=== PATIENT | male | born 1940 | race Caucasian/White ===

== ENCOUNTER 2020-07-31 17:23 | Inpatient (IN) | payer MEDICARE, MEDICAID ==
[~2020-07-31] VITALS: Ht 167.6 cm; Wt 84.4 kg
[2020-07-31 18:54] LABS: BASOPHILS % 0.4 % (0.0-2.0); HEMATOCRIT. 29.9 % (42.0-52.0); HEMOGLOBIN. 9.7 g/dL (14.0-18.0); LYMPHOCYTES % 8.8 % (20.0-50.0); MEAN CORPUSCULAR HEMOGLOBIN 28.6 pg (28.0-32.0); MEAN CORPUSCULAR VOLUME 88.2 fL (80.0-94.0); MEAN PLATELET VOLUME 7.8 fl (7.4-10.4); MONOCYTES % 9.5 % (2.0-8.0); NEUTROPHILS % 78.3 % (40.0-76.0); PLATELET 300 x1000/uL (130-400); RED BLOOD CELL COUNT 3.39 mill/uL (4.7-6.1); RED CELL DISTRIBUTION WIDTH 18.3 % (11.6-14.6)
[2020-07-31 19:00] LABS: CHLORIDE 96 mEq/L (98-107)
[2020-07-31] MEDS ORDERED: PIPERACILLIN/TAZ 3.375G PREMIX 50 ML IV ONE (19:30)
[2020-07-31] MEDS ORDERED: INSULIN LISPRO 100 UNITS/ML SUBCUT NR (22:30)
[2020-07-31] MEDS ORDERED: CLONIDINE 0.1MG TABLET PO NR (22:30)
[2020-08-01] VITALS (7 sets, daily range): BP systolic 74–173; BP diastolic 20–63
[2020-08-01] MEDS ORDERED: ACETAMINOPHEN 325MG TABLET PO PRN (04:15)
[2020-08-01] MEDS ORDERED: HYDROCODONE/ACETAMINOPHEN 10/325MG TABLET PO PRN (04:15)
[2020-08-01] MEDS ORDERED: NON FORMULARY PATIENT HOME MED XX SCH (04:15)
[2020-08-01] MEDS: BLOOD SUGAR DIAGNOSTIC STRIP TEST SCH ×4 (06:38→19:50)
[2020-08-01] MEDS: PIPERACILLIN/TAZOBACTAM 2.25 G in DEXTROSE 5% WATER 50 ML IV SCH ×2 (06:38→13:18)
[2020-08-01] MEDS ORDERED: VANCOMYCIN 1 G PREMIX 200 ML IV SCH (07:00)
[2020-08-01] MEDS: INSULIN LISPRO 100 UNITS/ML SUBCUT SCH ×4 (07:02→20:28)
[2020-08-01] MEDS ORDERED: PIPERACILLIN/TAZOBACTAM 3.375 G/VIAL IV SCH (09:00)
[2020-08-01 09:46] LABS: CHLORIDE 97 mEq/L (98-107)
[2020-08-01] MEDS: FOLIC ACID/VITAMIN B COMP W-C TABLET PO SCH (09:46)
[2020-08-01] MEDS: SEVELAMER CARBONATE 800 MG TABLET PO SCH ×3 (09:46→16:33)
[2020-08-01] MEDS: AMLODIPINE 10MG TABLET PO SCH (09:47)
[2020-08-01 09:48] LABS: BASOPHILS % 0.7 % (0.0-2.0); EOSINOPHILS % 5.6 % (0.0-5.0); HEMATOCRIT. 28.4 % (42.0-52.0); HEMOGLOBIN. 9.3 g/dL (14.0-18.0); MEAN CORPUSCULAR HEMOGLOBIN 28.8 pg (28.0-32.0); MEAN CORPUSCULAR VOLUME 88.2 fL (80.0-94.0); MEAN PLATELET VOLUME 7.8 fl (7.4-10.4); MONOCYTES % 9.3 % (2.0-8.0); NEUTROPHILS % 71.4 % (40.0-76.0); PLATELET 257 x1000/uL (130-400); RED BLOOD CELL COUNT 3.22 mill/uL (4.7-6.1); RED CELL DISTRIBUTION WIDTH 17.9 % (11.6-14.6)
[2020-08-01] MEDS: INSULIN GLARGINE UD 100 UNITS/ML SYR SUBCUT SCH (09:51)
[2020-08-01 09:54] LABS: LDL CHOLESTEROL 61 mg/dL (5-100)
[2020-08-01 09:55] LABS: HDL CHOLESTEROL 56 mg/dL (40-59)
[2020-08-01 19:48] LABS: HEPATITIS B SURFACE ANTIGEN NEGATIVE
[2020-08-01] MEDS ORDERED: VANCOMYCIN 500 MG PREMIX 100 ML IV SCH (20:00)
[2020-08-01 20:17] LABS: HEPATITIS A AB IGM NEGATIVE (NEGATIVE)
[2020-08-01] MEDS: ENOXAPARIN 30MG/0.3ML SYR SUBCUT SCH (20:29)
[2020-08-01] MEDS: ATORVASTATIN CALCIUM 40MG TABLET PO SCH (20:30)
[2020-08-01] MEDS ORDERED: EPOETIN ALFA-EPBX 4,000 UNIT/ML VIAL SUBCUT SCH (21:00)
[2020-08-02] VITALS: BP 155/61
[2020-08-02] MEDS: PIPERACILLIN/TAZOBACTAM 2.25 G in DEXTROSE 5% WATER 50 ML IV SCH ×4 (00:43→23:03)
[2020-08-02] MEDS: INSULIN GLARGINE UD 100 UNITS/ML SYR SUBCUT SCH ×3 (00:45→22:00)
[2020-08-02 04:00] VITALS: BP 160/60
[2020-08-02] MEDS: BLOOD SUGAR DIAGNOSTIC STRIP TEST SCH ×4 (06:24→21:34)
[2020-08-02] MEDS: INSULIN LISPRO 100 UNITS/ML SUBCUT SCH ×4 (06:24→21:36)
[2020-08-02] MEDS: SEVELAMER CARBONATE 800 MG TABLET PO SCH ×3 (06:24→18:23)
[2020-08-02] MEDS ORDERED: LISINOPRIL 5MG TABLET PO SCH (09:00)
[2020-08-02] MEDS: FOLIC ACID/VITAMIN B COMP W-C TABLET PO SCH (09:29)
[2020-08-02] MEDS: AMLODIPINE 10MG TABLET PO SCH (09:30)
[2020-08-02] MEDS ORDERED: LIDOCAINE HCL 1% 20ML VIAL (Pyxis) INJ ONE (09:52)
[2020-08-02 10:01] LABS: BASOPHILS % 0.5 % (0.0-2.0); EOSINOPHILS % 4.9 % (0.0-5.0); HEMATOCRIT. 28.3 % (42.0-52.0); HEMOGLOBIN. 9.5 g/dL (14.0-18.0); LYMPHOCYTES % 11.4 % (20.0-50.0); MEAN CORPUSCULAR HEMOGLOBIN 29.3 pg (28.0-32.0); MEAN CORPUSCULAR VOLUME 87.7 fL (80.0-94.0); MONOCYTES % 6.3 % (2.0-8.0); NEUTROPHILS % 76.9 % (40.0-76.0); PLATELET 249 x1000/uL (130-400); RED BLOOD CELL COUNT 3.23 mill/uL (4.7-6.1)
[2020-08-02 10:08] LABS: PARTIAL THROMBOPLASTIN TIME 27.5 sec (23.4-31.0)
[2020-08-02 11:58] LABS: PHOSPHORUS 4.5 mg/dL (2.5-4.9)
[2020-08-02 12:00] VITALS: BP 139/38
[2020-08-02 16:00] VITALS: BP 100/44
[2020-08-02 20:00] VITALS: BP 140/43
[2020-08-02] MEDS: ENOXAPARIN 30MG/0.3ML SYR SUBCUT SCH (21:34)
[2020-08-02] MEDS: ATORVASTATIN CALCIUM 40MG TABLET PO SCH (21:34)
[2020-08-03] VITALS: BP 138/37
[2020-08-03 04:00] VITALS: BP 135/40
[2020-08-03 06:24] LABS: BASOPHILS % 0.5 % (0.0-2.0); EOSINOPHILS % 6.9 % (0.0-5.0); HEMATOCRIT. 24.2 % (42.0-52.0); MEAN CORPUSCULAR VOLUME 87.3 fL (80.0-94.0); MONOCYTES % 9.9 % (2.0-8.0); NEUTROPHILS % 68.7 % (40.0-76.0); PLATELET 220 x1000/uL (130-400); RED BLOOD CELL COUNT 2.77 mill/uL (4.7-6.1); RED CELL DISTRIBUTION WIDTH 17.6 % (11.6-14.6)
[2020-08-03] MEDS: BLOOD SUGAR DIAGNOSTIC STRIP TEST SCH ×4 (06:27→19:52)
[2020-08-03] MEDS: PIPERACILLIN/TAZOBACTAM 2.25 G in DEXTROSE 5% WATER 50 ML IV SCH ×3 (06:32→21:02)
[2020-08-03] MEDS: SEVELAMER CARBONATE 800 MG TABLET PO SCH ×3 (08:27→17:31)
[2020-08-03] MEDS: FOLIC ACID/VITAMIN B COMP W-C TABLET PO SCH (08:27)
[2020-08-03 08:30] VITALS: BP 85/31
[2020-08-03] MEDS ORDERED: SODIUM CHLORIDE 0.9% 250 ML IV ONE (09:00)
[2020-08-03] MEDS: MIDODRINE HCL 5MG TABLET PO SCH ×3 (09:22→17:00)
[2020-08-03] MEDS: INSULIN GLARGINE UD 100 UNITS/ML SYR SUBCUT SCH ×2 (10:26→21:31)
[2020-08-03] MEDS: DEXT 5%/0.45% NACL 1000ML 1,000 ML IV SCH (12:31)
[2020-08-03] MEDS: INSULIN LISPRO 100 UNITS/ML SUBCUT SCH ×3 (12:33→21:03)
[2020-08-03 14:07] VITALS: BP 117/29
[2020-08-03] MEDS ORDERED: VANCOMYCIN 1 G PREMIX 200 ML IV ONE (15:15)
[2020-08-03 20:00] VITALS: BP 109/66
[2020-08-03] MEDS: ENOXAPARIN 30MG/0.3ML SYR SUBCUT SCH (21:01)
[2020-08-03] MEDS: ATORVASTATIN CALCIUM 40MG TABLET PO SCH (21:01)
[2020-08-04] VITALS (12 sets, daily range): BP systolic 97–184; BP diastolic 26–115
[2020-08-04] MEDS ORDERED: HYDRALAZINE 20MG/ML VIAL IV PRN (02:30)
[2020-08-04] MEDS ORDERED: CLONIDINE 0.1MG TABLET PO PRN (02:30)
[2020-08-04] MEDS: PIPERACILLIN/TAZOBACTAM 2.25 G in DEXTROSE 5% WATER 50 ML IV SCH ×2 (05:09→13:53)
[2020-08-04 06:23] LABS: BASOPHILS % 0.4 % (0.0-2.0); EOSINOPHILS % 5.5 % (0.0-5.0); HEMATOCRIT. 26.7 % (42.0-52.0); HEMOGLOBIN. 8.8 g/dL (14.0-18.0); LYMPHOCYTES % 12.8 % (20.0-50.0); MEAN CORPUSCULAR HEMOGLOBIN 28.6 pg (28.0-32.0); MEAN CORPUSCULAR VOLUME 87.2 fL (80.0-94.0); MEAN PLATELET VOLUME 8.2 fl (7.4-10.4); MONOCYTES % 10.6 % (2.0-8.0); NEUTROPHILS % 70.7 % (40.0-76.0); PLATELET 219 x1000/uL (130-400); RED BLOOD CELL COUNT 3.06 mill/uL (4.7-6.1); RED CELL DISTRIBUTION WIDTH 17.6 % (11.6-14.6)
[2020-08-04] MEDS: BLOOD SUGAR DIAGNOSTIC STRIP TEST SCH ×4 (06:34→20:46)
[2020-08-04] MEDS: INSULIN LISPRO 100 UNITS/ML SUBCUT SCH ×4 (08:00→20:50)
[2020-08-04] MEDS: MIDODRINE HCL 5MG TABLET PO SCH ×3 (09:00→17:00)
[2020-08-04] MEDS: SEVELAMER CARBONATE 800 MG TABLET PO SCH ×3 (10:04→18:21)
[2020-08-04] MEDS: DEXT 5%/0.45% NACL 1000ML 1,000 ML IV SCH (10:05)
[2020-08-04] MEDS: FOLIC ACID/VITAMIN B COMP W-C TABLET PO SCH (10:05)
[2020-08-04] MEDS: INSULIN GLARGINE UD 100 UNITS/ML SYR SUBCUT SCH ×2 (10:12→20:50)
[2020-08-04 16:14] LABS: HEPATITIS B SURFACE ANTIGEN NEGATIVE
[2020-08-04 16:44] LABS: HEPATITIS A AB IGM NEGATIVE (NEGATIVE)
[2020-08-04] MEDS ORDERED: VANCOMYCIN 750 MG PREMIX 150 ML IV NR (18:00)
[2020-08-04] MEDS: ENOXAPARIN 30MG/0.3ML SYR SUBCUT SCH (20:45)
[2020-08-04] MEDS: ATORVASTATIN CALCIUM 40MG TABLET PO SCH (20:46)
[2020-08-04] MEDS: AMLODIPINE 10MG TABLET PO SCH (20:46)
[2020-08-04] MEDS ORDERED: EPOETIN ALFA-EPBX 10,000 UNIT/ML VIAL SUBCUT SCH (21:00)
[2020-08-05 03:57] VITALS: BP 157/40
[2020-08-05] MEDS: INSULIN LISPRO 100 UNITS/ML SUBCUT SCH ×4 (07:51→21:31)
[2020-08-05] MEDS: BLOOD SUGAR DIAGNOSTIC STRIP TEST SCH ×4 (07:51→21:29)
[2020-08-05] MEDS: SEVELAMER CARBONATE 800 MG TABLET PO SCH ×3 (07:52→17:11)
[2020-08-05] MEDS: FOLIC ACID/VITAMIN B COMP W-C TABLET PO SCH (09:04)
[2020-08-05] MEDS: MIDODRINE HCL 5MG TABLET PO SCH ×3 (09:05→17:12)
[2020-08-05] MEDS: AMLODIPINE 10MG TABLET PO SCH ×2 (09:05→21:29)
[2020-08-05] MEDS: DEXT 5%/0.45% NACL 1000ML 1,000 ML IV SCH (09:08)
[2020-08-05] MEDS: INSULIN GLARGINE UD 100 UNITS/ML SYR SUBCUT SCH ×2 (10:06→22:00)
[2020-08-05 20:00] VITALS: BP_SYST 162; BP_SYST 177; BP_DIAS 57; BP_DIAS 60
[2020-08-05] MEDS: ENOXAPARIN 30MG/0.3ML SYR SUBCUT SCH (21:28)
[2020-08-05] MEDS: ATORVASTATIN CALCIUM 40MG TABLET PO SCH (21:29)
[2020-08-06] VITALS (9 sets, daily range): BP systolic 132–165; BP diastolic 49–84
[2020-08-06] MEDS: SEVELAMER CARBONATE 800 MG TABLET PO SCH ×3 (06:43→17:54)
[2020-08-06] MEDS: BLOOD SUGAR DIAGNOSTIC STRIP TEST SCH ×3 (06:43→16:45)
[2020-08-06] MEDS: INSULIN LISPRO 100 UNITS/ML SUBCUT SCH ×3 (06:44→17:15)
[2020-08-06] MEDS: AMLODIPINE 10MG TABLET PO SCH (09:00)
[2020-08-06] MEDS: MIDODRINE HCL 5MG TABLET PO SCH ×3 (09:00→17:00)
[2020-08-06] MEDS: FOLIC ACID/VITAMIN B COMP W-C TABLET PO SCH (10:03)
[2020-08-06] MEDS: INSULIN GLARGINE UD 100 UNITS/ML SYR SUBCUT SCH (10:10)
[2020-08-06 12:44] LABS: HEPATITIS B SURFACE ANTIGEN NEGATIVE
[2020-08-06 13:12] LABS: HEPATITIS A AB IGM NEGATIVE (NEGATIVE)
[2020-08-06 16:55] LABS: HEPATITIS B SURFACE ANTIGEN NEGATIVE
[2020-08-06] MEDS ORDERED: VANCOMYCIN 750 MG PREMIX 150 ML IV NR (18:00)
== END 2020-08-06 21:52 | DRG 564 ==
LOC: ER 17:43 → 5WST 20:23 → ENRESERV 08-01 00:35 → 6EST 08-02 13:24 → 5EST 08-03 11:57 → 5WST 08-05 17:30
PROVIDERS: ADMIT Internal Medicine; ATTEND Internal Medicine
PROC: 5A1D70Z Performance of Urinary Filtration, Intermittent, Less than 6 Hours Per Day (ICD-10-PCS; 2020-08-01)
PROC: 02HV33Z Insertion of Infusion Device into Superior Vena Cava, Percutaneous Approach (ICD-10-PCS; principal; 2020-08-02)
PROC: B548ZZA Ultrasonography of Superior Vena Cava, Guidance (ICD-10-PCS; 2020-08-02)
PROC: 5A1D70Z Performance of Urinary Filtration, Intermittent, Less than 6 Hours Per Day (ICD-10-PCS; 2020-08-04)
PROC: 5A1D70Z Performance of Urinary Filtration, Intermittent, Less than 6 Hours Per Day (ICD-10-PCS; 2020-08-06)
DX: T87.81 Dehiscence of amputation stump (principal); E43 Unspecified severe protein-calorie malnutrition; N18.6 End stage renal disease; I12.0 Hypertensive chronic kidney disease with stage 5 chronic kidney disease or end stage renal disease; E87.1 Hypo-osmolality and hyponatremia; M86.8X7 Other osteomyelitis, ankle and foot; E11.621 Type 2 diabetes mellitus with foot ulcer; E11.51 Type 2 diabetes mellitus with diabetic peripheral angiopathy without gangrene; E11.22 Type 2 diabetes mellitus with diabetic chronic kidney disease; M19.90 Unspecified osteoarthritis, unspecified site; F03.90 Unspecified dementia, unspecified severity, without behavioral disturbance, psychotic disturbance, mood disturbance, and anxiety; R26.81 Unsteadiness on feet; D63.8 Anemia in other chronic diseases classified elsewhere; E11.69 Type 2 diabetes mellitus with other specified complication; Y83.5 Amputation of limb(s) as the cause of abnormal reaction of the patient, or of later complication, without mention of misadventure at the time of the procedure; L89.629 Pressure ulcer of left heel, unspecified stage; L97.529 Non-pressure chronic ulcer of other part of left foot with unspecified severity; Z79.4 Long term (current) use of insulin; Z82.49 Family history of ischemic heart disease and other diseases of the circulatory system; Z85.038 Personal history of other malignant neoplasm of large intestine; Z99.2 Dependence on renal dialysis; Z86.73 Personal history of transient ischemic attack (TIA), and cerebral infarction without residual deficits; Z85.46 Personal history of malignant neoplasm of prostate; Z87.01 Personal history of pneumonia (recurrent); Z91.19 Patient's noncompliance with other medical treatment and regimen; Z79.899 Other long term (current) drug therapy; Y92.89 Other specified places as the place of occurrence of the external cause
CPT/HCPCS: 36415; 71045; 73630; 76937; 80048; 80053; 80061; 80202; 82962; 83036; 84100; 85025; 85651; 86705; 86709; 86803; 87340; 93923; 97116; 97162; 99285; C1725; J0885; J1650; J1815; J2543; J3370; J3490; J7040; J7060